=== PATIENT | female | born 1950 | race Caucasian/White ===

== ENCOUNTER 2017-03-02 17:55 | Emergency (ER) | payer OTHER, MEDICAID ==
[2017-03-02 18:10] VITALS: RESP 20
[2017-03-02] MEDS ORDERED: ENOXAPARIN 120 MG/0.8 ML SYR SC ONE (18:32)
--- NOTE | 2017-03-02 18:35 | EDPHY ---
H & P Time Seen by Provider: 03/02/17 18:16 HPI/ROS: CHIEF COMPLAINT: Right arm pain, DVT HISTORY OF PRESENT ILLNESS: This 66-year-old man has a history of bone cancer breast cancer and is followed by Dr. Martinez. 3 years ago after surgery she had a pulmonary embolism as anticoagulated but is not currently on any blood thinners. Over the last 3 days she has had pain in her right shoulder radiating to her bicep not worse with movement not associated with chest pain or shortness of breath. She had ultrasound today which showed a DVT and she was sent here for further evaluation. It is associated with a little bit of swelling of her right hand but no weakness or numbness in the right hand. REVIEW OF SYSTEMS: Eye: no change in vision ENT: no sore throat Cardiac: no chest pain or syncope Pulmonary: no cough or SOB Abdomen: no vomiting, diarrhea, abdominal pain Musculoskeletal: Arm and shoulder symptoms as noted above Skin: no rash Neuro: no headache Constitutional: no fever : no urinary symptoms A comprehensive 10 point review of systems is otherwise negative aside from elements mentioned in the history of present illness. PAST MEDICAL HISTORY: Bone and breast cancer, fibromyalgia, pulmonary embolism Social history: Nonsmoker General Appearance: Alert and conversant, cooperative. Eyes: No scleral icterus. ENT, Mouth: Normal mucous membranes. Respiratory: Normal respiratory effort, breath sounds equal, lungs are clear to auscultation. Speaking in full sentences. Cardiovascular: Regular rate and rhythm. Gastrointestinal: Abdomen is soft and non tender. Neurological: Alert and oriented x3. Normally conversant. Face symmetric, normal movement and sensation in all extremities. Skin: Warm and dry, no rashes. Specifically no zoster or discoloration of the skin over the right shoulder. Musculoskeletal: Normal range of motion of the right shoulder elbow and forearm. Normal sensory and radial pulse in the right hand. Psychiatric: Not agitated. Emergency Department course/MDM: Discussed with Dr. Jeaentte Tompkins for Dr. Martinez prior to arrival. Her request is that we treat the patient with Lovenox for the next [address] Martinez will contact her tomorrow about specifics of continued anticoagulation. Warfarin versus NOACs discussed with the patient, and her oncology practice's desire to have that discussion not tonight but tomorrow. She feels comfortable giving herself 2nd Lovenox injection in the morning. Currently she does not have signs or symptoms of pulmonary embolism or hemodynamic instability. Smoking Status: Former smoker Constitutional: Initial Vital Signs Temperature (C) 37 C 03/02/17 18:07 Heart Rate 100 03/02/17 18:07 Respiratory Rate 20 03/02/17 18:07 Blood Pressure 148/91 H 03/02/17 18:07 O2 Sat (%) 95 03/02/17 18:07 O2 Delivery Mode Room Air Allergies/Adverse Reactions: Wheat Containing *RETIRED-02/15/12 [Wheat Containing Prod] Allergy ( Intermediate, Verified 03/02/17 18:04) Other-Enter Comments gluten Allergy (Verified 03/02/17 18:04) Home Medications: Medication Instructions Recorded ARIPiprazole [Abilify 10 mg (*)] 10 mg PO DAILY 06/15/14 Methylphenidate HCl [RITALIN LA] 30 mg PO ,14 PRN 06/15/14 Naltrexone 4.5mg Cap (Compounded) 1 cap PO HS 06/15/14 SUMAtriptan [Imitrex 50 MG (*)] 100 mg PO Q2 PRN 06/15/14 Venlafaxine HCl [Venlafaxine HCl 450 mg PO DAILY 06/15/14 ER] Zolpidem Tartrate [Ambien 10 mg] 10 mg PO HS 06/15/14 Herbals/Supplements -Info Only 1 ea PO DAILY 10/10/14 Hydrocodone/APAP 5/325 [[place] 1 - 2 tab PO Q4 PRN #30 tab 10/17/14 5/325 (*)] Cogentin 03/02/17 Enoxaparin [Lovenox 120 MG (*)] 120 mg SQ BID #1 ml 03/02/17 GLIPIZIDE 03/02/17 Ibrance 03/02/17 Letrozole 03/02/17 Losartan Potassium 03/02/17 Tradjenta 03/02/17 Medical Decision Making - Diagnostics Imaging Results: Imaging Impressions Extremity Venous Study 03/02/17 16:00 Impression: 1. Thrombus identified involving the basilic vein right upper arm as well as the right cephalic vein. 2. Superficial thrombus involving varicosity over the right shoulder corresponding with palpable abnormality. Findings discussed with Dr. Jeanette Tompkins at 17:39 hour, 03/02/2017. Differential Diagnosis: Differential for right arm and shoulder pain considered including but not limited to compartment syndrome, fracture, DVT, arterial occlusion, septic joint. Departure - Departure Disposition: Home, Routine, Self-Care Clinical Impression: Deep vein thrombosis (DVT) of right upper extremity Qualifiers: Affected thrombotic vein of extremity: unspecified vein of extremity Chronicity : acute Qualified Code(s): I82.621 - Acute embolism and thrombosis of deep veins of right upper extremity Condition: Good Instructions: Enoxaparin (By injection), Deep Venous Thrombosis (ED) Additional Instructions: 2nd dose of Lovenox to be injected at home 12 hours after the 1st dose, tomorrow morning. Return if you get chest pain or trouble breathing. Please contact your oncologist Dr. Martinez tomorrow morning at 8:30 a.m. for discussion and prescription for ongoing anticoagulation for blood clot. The Lovenox should anticoagulate you through tomorrow evening. Referrals: Adrian Grady MD [Primary Care Provider] - As per Instructions Destini Martinez MD [Medical Doctor] - As per Instructions Prescriptions: Enoxaparin [Lovenox 120 MG (*)] 120 mg SQ BID #1 ml
[2017-03-02 19:46] VITALS: BP 121/80; PULSE 83; TEMP 98.4; O2SAT 92
[2017-03-03] MEDS ORDERED: ENOXAPARIN 120 MG/0.8 ML SYR SC SCH
== END 2017-03-02 20:17 | disposition home or self-care (01) ==
DX: I82.621 Acute embolism and thrombosis of deep veins of right upper extremity (principal); Z85.3 Personal history of malignant neoplasm of breast; Z85.830 Personal history of malignant neoplasm of bone; Z87.891 Personal history of nicotine dependence
CPT/HCPCS: 93971; 96372; 99285; J1650

== ENCOUNTER 2018-06-12 21:01 | Inpatient (IN) | payer OTHER, MEDICAID ==
[2018-06-12] MEDS ORDERED: ACETAMINOPHEN 500 MG TAB PO ONE (21:15)
--- NOTE | 2018-06-12 21:15 | EDPHY ---
H & P Time Seen by Provider: 06/12/18 21:04 HPI/ROS: HPI Malaise, confusion. 68-year-old female by ambulance from her home. Her son reported to EMS that she has been more confused since this morning. The patient She also reports that she has felt generally weak and low on energy and because of this is had a hard time ambulating. The son was initially concerned about a stroke. But EMS reports that she has no signs of a stroke. They report that she has being communicating in full sentences and answering questions appropriately and does not appear confused. She was able to ambulate according to EMS with minimal assistance. BGL per EMS was 78. On re-evaluation, the patient explained to me that she has had worsening of vaginal irritation and pain as well as irritation and pain involving her inguinal pannus folds ongoing for weeks now. My sense is that she did not communicate this on my 1st evaluation with EMS present secondary to embarrassment. She also reports that she has been admitted to the hospital in the past but years ago for a similar condition. ROS: Constitutional: No fever, no chills. As above. Eyes: No discharge. No changes in vision. ENT: No sore throat. No nasal congestion or rhinorrhea. Respiratory: No cough. No shortness of breath. Cardiac: No chest pain, no palpitations. Gastrointestinal: No abdominal pain, no vomiting, no diarrhea. Genitourinary: No hematuria. No dysuria or increased frequency with urination. As above. Musculoskeletal: No back pain. No neck pain. No myalgias or arthralgias. Skin: As above. Neurological: No headache. No focal weakness or altered sensation. Past medical history: Chronic pain, breast cancer, as above. Social history: Nonsmoker. Here by herself but lives with her son. Denies alcohol. Physical Exam: General Appearance: Alert, no distress. Morbid obesity. This patient is responding to questions appropriately and in full sentences. This patient appears well-hydrated and well-nourished. Eyes: Pupils equal and round no pallor or injection. No lid edema, erythema or injection. Respiratory: There are no retractions, lungs are clear to auscultation anteriorly with good air movement bilaterally. Cardiovascular: Regular rate and rhythm. No murmur. Gastrointestinal: Obese habitus. Abdomen is soft and nontender, no masses, bowel sounds normal. No focal tenderness at McBurney's point. No Cheung sign. Neurological: Motor sensory function is grossly intact. Cranial nerves are normal. Gait is normal. Skin: She has an advanced intertrigo involving the fat folds over her bilateral inguinal areas. This extends down into the labia of her vagina and her perineum. This is also noted to extensively involve the gluteal fold. I do not appreciate any abscess. There is no crepitus. She does not appear to be markedly tender or have pain out of proportion to exam. She does have some bleeding from what appears to be broken and friable mucosa of her labia minora. Musculoskeletal: Neck is supple and nontender. Extremities are symmetrical. All joints range without pain or impingement. Psychiatric: No agitation. No depression. Database: EKG: EKG time is 9:23 p.m.; EKG shows a narrow complex sinus tachycardia with a ventricular rate of 113. The HI, QRS, QT intervals are within normal limits. There are no ST-T wave changes indicative of ischemic or injury pattern. No evidence of right heart strain. Interpreted by me. Imaging: Chest x-ray PA and lateral; the cardiac mediastinal silhouette is unremarkable. No evidence of infiltrate or pneumothorax. Peribronchial thickening suggestive of mild bronchitis. Otherwise, no acute cardiopulmonary disease process noted. Interpreted by me. Procedures: Emergency department course: Triage vital signs reviewed. She is febrile and tachycardic. She is moderately hypertensive. Room air pulse oximetry is in the mid 90s. Sepsis protocol initiated. EKG obtained and reviewed by myself. IV placed, she was placed on a cardiac exercise specialist. She was given 1 g of Tylenol orally for fever. Her presentation is consistent with an advanced intertrigo involving the pannus folds of her inguinal areas as well as her perennial and vaginal tissues. I feel there is also a likely superimposed bacterial cellulitis. Necrotizing fasciitis is unlikely. Blood in urine cultures will be obtained. She will be started on IV Ancef in the emergency department and miconazole cream will be applied to the affected areas. The patient did meet criteria for severe sepsis and this protocol was initiated. Please see times order. 11:00 p.m., spoke with on-call hospitalist Dr. Clinton. Case discussed in detail. We will obtain a CT abdomen and pelvis contrast enhanced to evaluate for gas in the soft tissues as well as possible abscess. I examined the patient with Dr. Clinton. Patient will be admitted to the step-down unit initially. Patient's remaining emergency department course under my care has been uneventful. She was admitted in stable condition. Dr. Clinton follow up on results of CT abdomen and pelvis. AC reactive protein has also been ordered and will be followed up on by Dr. Clinton. Differential Diagnosis: The differential diagnosis on this patient includes but is not limited to intertrigo, superimposed cellulitis, urinary tract infection, pneumonia, sepsis. Acute coronary syndrome, CVA, medication reaction unlikely. This represents a partial list of diagnoses considered. These considerations are based on history, physical exam, past history, reassessment and diagnostic testing. Smoking Status: Former smoker Constitutional: Initial Vital Signs Temperature (C) 38.9 C H 06/12/18 21:08 Heart Rate 117 H 06/12/18 21:08 Respiratory Rate 18 06/12/18 21:08 Blood Pressure 162/79 H 06/12/18 21:08 O2 Sat (%) 96 06/12/18 21:08 O2 Delivery Mode Nasal Cannula O2 (L/minute) 2 Allergies/Adverse Reactions: Wheat Containing *RETIRED-02/15/12 [Wheat Containing Prod] Allergy ( Intermediate, Verified 03/02/17 18:04) Other-Enter Comments gluten Allergy (Verified 03/02/17 18:04) Home Medications: Medication Instructions Recorded ARIPiprazole [Abilify 10 mg (*)] 10 mg PO DAILY 06/15/14 SUMAtriptan [Imitrex 50 MG (*)] 100 mg PO Q2 PRN 06/15/14 Venlafaxine HCl [Venlafaxine HCl 450 mg PO DAILY 06/15/14 ER] Benztropine Mesylate [Cogentin 1 - 2 mg PO HS 06/13/18 (RX)] Gabapentin [Neurontin 300 MG (*)] 300 - 600 mg PO DAILY 06/13/18 HYDROcodone/APAP 10/325 [Purmela 2 tab PO Q4H 06/13/18 10/325 (*)] Linagliptin [Tradjenta] 5 mg PO DAILY 06/13/18 Losartan Potassium [Cozaar 50 mg 50 mg PO DAILY 06/13/18 (*)] Methylphenidate HCl [Ritalin 20mg 40 mg PO BID 06/13/18 (*)] glipiZIDE [Glipizide] 10 mg PO DAILY 06/13/18 Medical Decision Making - Data Points Laboratory Results: Laboratory Results 06/12/18 21:00 06/12/18 21:00 Medications Given: Hydrocodone Bitart/Acetaminophen (Purmela 5/325) 1 - 2 tab PO Q4HRS PRN PRN Reason: Pain, Moderate Able to Take PO Stop: 06/23/18 01:40 Last Admin: 06/13/18 14:14 Dose: 2 tab Aripiprazole (Abilify) 10 mg PO DAILY [facility] Stop: 12/10/18 12:59 Last Admin: 06/13/18 14:31 Dose: 10 mg Gabapentin (Neurontin) 300 - 600 mg PO DAILY [facility] Stop: 12/10/18 12:59 Last Admin: 06/13/18 14:37 Dose: 600 mg Cefazolin Sodium/Dextrose (Ancef) 100 mls @ 200 mls/hr IV Q8HRS LISA PRN Reason: Protocol Stop: 07/13/18 05:59 Last Admin: 06/13/18 14:15 Dose: 100 mls Insulin Human Lispro (Humalog Lispro) 0 unit SC TIDMEAL LISA PRN Reason: Protocol Stop: 12/10/18 07:59 Last Admin: 06/13/18 12:58 Dose: Not Given Miconazole Nitrate (Micatin 2%) 1 subhash TP BID [facility] Stop: 07/13/18 08:59 Last Admin: 06/13/18 09:46 Dose: 1 subhash Rivaroxaban (Xarelto) 20 mg PO DAILY [facility] Stop: 12/10/18 13:44 Last Admin: 06/13/18 14:34 Dose: 20 mg Venlafaxine HCl (Effexor Xr) 450 mg PO DAILY [facility] Stop: 12/10/18 12:59 Last Admin: 06/13/18 14:31 Dose: 450 mg Discontinued Medications Acetaminophen (Tylenol) 1,000 mg PO EDNOW ONE Stop: 06/12/18 21:16 Last Admin: 06/12/18 21:18 Dose: 1,000 mg Sodium Chloride (Ns) 1,000 mls @ 0 mls/hr IV EDNOW ONE; Wide Open PRN Reason: Protocol Stop: 06/12/18 21:30 Last Admin: 06/12/18 21:48 Dose: 1,000 mls Lactated Ringer's (Lr) 2,600 mls @ 5,200 mls/hr 30 ml/kg infuse over 30 min ( 2600 ml) IV EDNOW ONE PRN Reason: Protocol Stop: 06/12/18 22:31 Last Admin: 06/12/18 22:35 Dose: 2,600 mls Cefazolin Sodium/Dextrose (Ancef) 100 mls @ 200 mls/hr IV EDNOW ONE PRN Reason: Protocol Stop: 06/12/18 22:48 Last Admin: 06/12/18 22:59 Dose: 100 mls Sodium Chloride (Ns) 1,000 mls @ 0 mls/hr IV ONCE ONE PRN Reason: Wide Open Stop: 06/13/18 01:22 Last Admin: 06/13/18 02:25 Dose: 1,000 mls Miconazole Nitrate (Micatin 2%) 1 subhash TP EDNOW ONE Stop: 06/12/18 22:21 Last Admin: 06/12/18 23:06 Dose: 1 subhash Departure - Departure Disposition: [facility] Acute Clinical Impression: Intertrigo labialis, Cellulitis of groin, Sepsis, Leukopenia
[2018-06-12 21:20] LABS: PLATELET COUNT 93 10^3/uL (150-400)
[2018-06-12] MEDS ORDERED: NS 1,000 ML IV ONE (21:29)
[2018-06-12 21:31] LABS: INR 1.98 (0.83-1.16); PROTIME(PATIENT) 22.6 SEC (12.0-15.0)
[2018-06-12] MEDS ORDERED: LACTATED RINGERS IV ONE (22:02)
[2018-06-12] MEDS ORDERED: ceFAZolin 2 GM/DEXTROSE 100 ML IV ONE (22:19)
[2018-06-12] MEDS ORDERED: MICONAZOLE NITRATE 2% 14 GM CREAM TP ONE (22:20)
[2018-06-12] MEDS ORDERED: IOPAMIDOL (ISOVUE-300) 100 ML BTL ONE (22:30)
[2018-06-12] MEDS ORDERED: ACETAMINOPHEN 325 MG TAB PO PRN (22:33)
[2018-06-12] MEDS ORDERED: ONDANSETRON DISINTEGRATING 4 MG TAB PO PRN (22:33)
[2018-06-12] MEDS ORDERED: ONDANSETRON 4 MG/2 ML VIAL IVP PRN (22:33)
[2018-06-12] MEDS ORDERED: D50W 25 GM/50 ML VIAL IVP PRN (22:36)
--- NOTE | 2018-06-12 23:29 | PDGENHP ---
History and Physical - Chief Complaint Confusion - History of Present Illness 68 yo F w/ hx of PE, breast CA, HTN, and DM presents with confusion via EMS. Her son noted she was confused so called EMS to bring her to the hospital. Upon arrival to the ED the patient revealed that her main complaint was related to inguinal and vaginal irritation and pain. In the ED she has been febrile and tachycardic with a low WBC. Her inguinal and vaginal area are markedly erythematous. At the time of my evaluation she is alert and oriented with minimal complaints aside from pain in her inguinal region. Of note, she was seen at [facility] in 2014 for significant pelvic infection requiring surgical debridement and diverting colostomy. Review of microbiology data reveals that infection was due to heath-sensitive E. Coli. Case discussed with ED physician Dr. Ramirez; records reviewed and summarized above. History Information - Allergies/Home Medication List Allergies/Adverse Reactions: Wheat Containing *RETIRED-02/15/12 [Wheat Containing Prod] Allergy ( Intermediate, Verified 03/02/17 18:04) Other-Enter Comments gluten Allergy (Verified 03/02/17 18:04) Home Medications: ARIPiprazole [Abilify 10 mg (*)] 10 mg PO DAILY 06/15/14 [Last Taken 10/11/14 12 :00] Methylphenidate HCl [RITALIN LA] 30 mg PO ,14 PRN 06/15/14 [Last Taken 15:00] Naltrexone 4.5mg Cap (Compounded) 1 cap PO HS 06/15/14 [Last Taken 10/10/14 21: 00] SUMAtriptan [Imitrex 50 MG (*)] 100 mg PO Q2 PRN 06/15/14 [Last Taken 09/12/14] Venlafaxine HCl [Venlafaxine HCl ER] 450 mg PO DAILY 06/15/14 [Last Taken 05:30] Zolpidem Tartrate [Ambien 10 mg] 10 mg PO HS 06/15/14 [Last Taken 10/10/14 21:00 ] Herbals/Supplements -Info Only 1 ea PO DAILY 10/10/14 [Last Taken Unknown] Cogentin 03/02/17 [Last Taken Unknown] GLIPIZIDE 03/02/17 [Last Taken Unknown] Ibrance 03/02/17 [Last Taken Unknown] Letrozole 03/02/17 [Last Taken Unknown] Losartan Potassium 03/02/17 [Last Taken Unknown] Tradjenta 03/02/17 [Last Taken Unknown] I have personally reviewed and updated: family history, medical history - Past Medical History cancer, diabetes type 2, hypertension, pulmonary embolism - Surgical History Additional surgical history: Colostomy with subsequent takedown - Family History Positive for: cancer - Social History Smoking Status: Former smoker Review of Systems Review of Systems: ROS: 10pt was reviewed & negative except for what was stated in HPI & below Physical Exam Physical Exam: Temp Pulse Resp BP Pulse Ox 38.5 C H 110 H 18 122/73 H 92 06/12/18 23:23 06/12/18 23:23 06/12/18 23:23 06/12/18 23:23 06/12/18 23:23 O2 (L/minute) 2 Constitutional: obese, uncomfortable Eyes: PERRL, EOMI Ears, Nose, Mouth, Throat: moist mucous membranes, no oral mucosal ulcers Cardiovascular: no murmur, rub, or gallop, tachycardia Respiratory: no respiratory distress, clear to auscultation Gastrointestinal: normoactive bowel sounds, soft, non-tender abdomen Skin: erythema, other (Irritation and erythmea in inguinal folds, abdominal folds, and vagina) Musculoskeletal: full muscle strength, no muscle tenderness Neurologic: AAOx3, CN II-XII Intact Psychiatric: interacting appropriately, not anxious Lab Data & Imaging Review 06/12/18 21:00 06/12/18 21:00 WBC 3.26 10^3/uL (3.80-9.50) L 06/12/18 21:00 RBC 4.46 10^6/uL (4.18-5.33) 06/12/18 21:00 Hgb 14.0 g/dL (12.6-16.3) 06/12/18 21:00 Hct 42.5 % (38.0-47.0) 06/12/18 21:00 MCV 95.3 fL (81.5-99.8) 06/12/18 21:00 MCH 31.4 pg (27.9-34.1) 06/12/18 21:00 MCHC 32.9 g/dL (32.4-36.7) 06/12/18 21:00 RDW 13.2 % (11.5-15.2) 06/12/18 21:00 Plt Count 93 10^3/uL (150-400) L 06/12/18 21:00 MPV 9.7 fL (8.7-11.7) 06/12/18 21:00 Neut % (Auto) 74.5 % (39.3-74.2) H 06/12/18 21:00 Lymph % (Auto) 16.9 % (15.0-45.0) 06/12/18 21:00 Brule % (Auto) 4.9 % (4.5-13.0) 06/12/18 21:00 Eos % (Auto) 2.5 % (0.6-7.6) 06/12/18 21:00 Baso % (Auto) 0.9 % (0.3-1.7) 06/12/18 21:00 Nucleat RBC Rel Count 0.0 % (0.0-0.2) 06/12/18 21:00 Absolute Neuts (auto) 2.43 10^3/uL (1.70-6.50) 06/12/18 21:00 Absolute Lymphs (auto) 0.55 10^3/uL (1.00-3.00) L 06/12/18 21:00 Absolute Monos (auto) 0.16 10^3/uL (0.30-0.80) L 06/12/18 21:00 Absolute Eos (auto) 0.08 10^3/uL (0.03-0.40) 06/12/18 21:00 Absolute Basos (auto) 0.03 10^3/uL (0.02-0.10) 06/12/18 21:00 Absolute Nucleated RBC 0.00 10^3/uL (0-0.01) 06/12/18 21:00 Immature Gran % 0.3 % (0.0-1.1) 06/12/18 21:00 Immature Gran # 0.01 10^3/uL (0.00-0.10) 06/12/18 21:00 RBC/WBC/PLT Morphology TNP 06/12/18 21:00 Platelet Estimate TNP 06/12/18 21:00 ESR Cancelled 06/12/18 21:00 PT 22.6 SEC (12.0-15.0) H 06/12/18 21:00 INR 1.98 (0.83-1.16) H 06/12/18 21:00 APTT 40.4 SEC (23.0-38.0) H 06/12/18 21:00 VBG Lactic Acid 2.1 mmol/L (0.7-2.1) 06/12/18 21:45 Sodium 135 mEq/L (135-145) 06/12/18 21:00 Potassium 4.0 mEq/L (3.5-5.2) 06/12/18 21:00 Chloride 102 mEq/L (97-110) 06/12/18 21:00 Carbon Dioxide 27 mEq/l (22-31) 06/12/18 21:00 Anion Gap 6 mEq/L (6-14) 06/12/18 21:00 BUN 13 mg/dL (7-23) 06/12/18 21:00 Creatinine 0.8 mg/dL (0.6-1.0) 06/12/18 21:00 Estimated GFR > 60 06/12/18 21:00 Glucose 163 mg/dL (70-100) H 06/12/18 21:00 Calcium 9.1 mg/dL (8.5-10.4) 06/12/18 21:00 Total Bilirubin 0.6 mg/dL (0.1-1.4) 06/12/18 21:00 C-Reactive Protein 31.6 mg/L (<10.0) H 06/12/18 21:00 Urine Color YELLOW 06/12/18 21:45 Urine Appearance CLEAR 06/12/18 21:45 Urine pH 5.0 (5.0-7.5) 06/12/18 21:45 Ur Specific [place] 1.017 (1.002-1.030) 06/12/18 21:45 Urine Protein NEGATIVE (NEGATIVE) 06/12/18 21:45 Urine Ketones NEGATIVE (NEGATIVE) 06/12/18 21:45 Urine Blood 2+ (NEGATIVE) H 06/12/18 21:45 Urine Nitrate NEGATIVE (NEGATIVE) 06/12/18 21:45 Urine Bilirubin NEGATIVE (NEGATIVE) 06/12/18 21:45 Urine Urobilinogen NEGATIVE EU (0.2-1.0) 06/12/18 21:45 Ur Leukocyte Esterase NEGATIVE (NEGATIVE) 06/12/18 21:45 Urine RBC 25-50 /hpf (0-3) H 06/12/18 21:45 Urine WBC 1-3 /hpf (0-3) 06/12/18 21:45 Ur Epithelial Cells NONE SEEN /lpf (NONE-1+) 06/12/18 21:45 Urine Mucus TRACE /lpf (NONE-1+) 06/12/18 21:45 Urine Glucose 1+ (NEGATIVE) H 06/12/18 21:45 Imaging Review: Imaging Impressions Chest X-Ray 06/12/18 21:10 Impression: Peribronchial thickening with mild hypoventilatory features, and no convincing focal infiltrate. If there is progression of the patient's symptoms, consider PA and lateral upright views in the department. Assessment & Plan Assessment: 68 yo F w/ hx of breast CA, DM, HTN, and PE presents with intertrigo and likely bacterial superinfection. Plan: 1. Sepsis - 2/2 intertrigo and likely bacterial superinfection of the inguinal area, abdominal folds, and vagina. Sepsis on admission per fever, tachycardia, and leukopenia (3/4 SIRS criteria). She is hemodynamically stable at the moment. - Cefazolin IV and miconazole topical ordered - Blood cultures pending - S/p 30 ml/kg IVF bolus 2. Leukopenia, thrombocytopenia - Likely related to infection as current values are lower than usual, but there may be an other underlying etiology as well. - Monitor CBC - Acute management as above 3. DM - Patient unsure of her home regimen, she knows she takes Tradjenta but cannot recall what else. - Lispro SSI pending med reconciliation - Monitor BG ACHS, D50 IV PRN for hypoglycemia 4. Hx PE - On Xarelto as outpatient, continue pending reconciliation unless platelets drop more. 5. HTN - She tells me she is no longer taking losartan. Diet - Regular Code - Full Ppx - SCDs Dispo - Admit under inpatient status
[2018-06-13] MEDS ORDERED: NS 1,000 ML IV ONE (01:21)
[2018-06-13] MEDS: HYDROCODONE/APAP 5/325 TAB PO PRN ×5 (02:25→22:43)
[2018-06-13] MEDS: ceFAZolin 2 GM/DEXTROSE 100 ML IV SCH ×3 (05:49→22:15)
[2018-06-13 06:15] LABS: PLATELET COUNT 76 10^3/uL (150-400)
[2018-06-13] MEDS: INSULIN LISPRO 100 UNIT/ML SC SCH ×3 (08:34→19:09)
--- NOTE | 2018-06-13 09:07 | ASMTCMCOM ---
CM Note CM Note Notes: Pt is a 68 y/o female admitted for confusion, inguinal and vaginal irritation and pain. Pt is started on ivabx. It is uncertain if pt will d/c with ivabx. Needs are TBD at this time. CM to follow. Plan: TBD Date Signed: 06/13/2018 09:06 AM Electronically Signed By:CRISTI Staples
[2018-06-13] MEDS: MICONAZOLE NITRATE 2% 14 GM CREAM TP SCH ×2 (09:46→22:15)
--- NOTE | 2018-06-13 10:27 | PDMN ---
Medical Necessity Medical necessity: [facility] [place] [id number] Sepsis, A-3days:68 yo presents w/ confusion r/t sepsis likely r/t superinfection of inguinal area, abd folds and vagina. Pt is tachycardic >110, temp 38.9, leukopenic and thrombocytopenic. lactic acid 2.6. Meets [facility] [place] IP criteria for sepsis w/ hemodynamic instability and AMS. Hx PE, breast CA, HTN, DM
--- NOTE | 2018-06-13 12:48 | HOSPPROG ---
Hospitalist Progress Note Assessment/Plan: 68 yo F w/ hx of breast CA, DM, HTN, and PE presents with intertrigo and likely bacterial superinfection. First encounter, chart reviewed. * Sepsis - 2/2 intertrigo and likely bacterial superinfection of the inguinal area, abdominal folds, and vagina. - Cefazolin IV and miconazole topical ordered - Blood cultures pending - looks mainly fungal with red, beefy red skin areas in the bilateral groin folds, she has itching and burning - will ask wound care to see if they have any type of material barrier to help this heal - has an elevated c reactive *Leukopenia, thrombocytopenia - Monitor CBC *confusion -resolved *DM - Tradjenta + glipizide - Lispro SSI pending * Hx PE - On Xarelto as outpatient -did not see any OAC on her home meds, but in further talking w Lacy, will resume Xarelto -platelet count is low, will cont to monitor *bipolar disorder -Abilify *seizure disorder -gabapentin *fibromyalgia fatigue -patient takes Ritalin for this *morbid obesity *hx of polymicrobial necrotizing fascitis of Left perineum and anal area *hematuria -should get a repeat ua -she on OAC * HTN - losartan *plan: wound care to see, repeat labs in a.m., resume Xarelto and home meds Subjective: Lacy is feeling fine overall, no complaints except discomfort from her groin areas. Objective: Vital Signs Temp Pulse Resp BP Pulse Ox 36.8 C 85 16 132/78 H 94 06/13/18 11:39 06/13/18 11:39 06/13/18 11:39 06/13/18 11:39 06/13/18 11:39 Microbiology 06/13/18 02:00 Respiratory Panel (PCR) - Final Nasal, Sinus - Swab No Organism Detected By Pcr Laboratory Results 06/13/18 04:45 06/13/18 04:45 06/12/18 06/13/18 06/14/18 05:59 05:59 05:59 Intake Total 2950 400 Output Total 350 Balance 2950 50 PT 22.6 SEC (12.0-15.0) H 06/12/18 21:00 INR 1.98 (0.83-1.16) H 06/12/18 21:00 - Physical Exam Constitutional: chronically ill appearing, obese, uncomfortable Eyes: PERRL Ears, Nose, Mouth, Throat: hearing normal Cardiovascular: regular rate and rhythym Respiratory: no respiratory distress, reduced air movement Gastrointestinal: normoactive bowel sounds Skin: other (bilateral groin area moist, beefy red, tender=extends into the perineal area) Musculoskeletal: generalized weakness Neurologic: AAOx3 Psychiatric: interacting appropriately ICD10 Worksheet Patient Problems: Problems Problem Status Onset Abscess Acute Necrotizing fasciitis Acute Intertrigo labialis Acute Cellulitis of groin Acute
[2018-06-13] MEDS: ARIPiprazole 10 MG TAB PO SCH (14:31)
[2018-06-13] MEDS: VENLAFAXINE XR 150 MG CAP PO SCH (14:31)
[2018-06-13] MEDS: RIVAROXABAN 20 MG TAB PO SCH (14:34)
[2018-06-13] MEDS: GABAPENTIN 300 MG CAP PO SCH (14:37)
[2018-06-13] MEDS ORDERED: BENZTROPINE MESYLATE 1 MG TAB PO SCH (21:00)
--- NOTE | 2018-06-13 22:14 | CPEKG ---
Test Reason : OPEN Blood Pressure : / mmHG Vent. Rate : 113 BPM Atrial Rate : 114 BPM P-R Int : 153 ms QRS Dur : 091 ms QT Int : 310 ms P-R-T Axes : 057 049 060 degrees QTc Int : 425 ms Sinus tachycardia Confirmed by Zain Ramirez ([id number]) on 06/13/2018 10:13:45 PM Referred By: Confirmed By:Zain Ramirez
[2018-06-14] MEDS: ceFAZolin 2 GM/DEXTROSE 100 ML IV SCH (05:46)
[2018-06-14 05:51] LABS: PLATELET COUNT 78 10^3/uL (150-400)
[2018-06-14] MEDS: INSULIN LISPRO 100 UNIT/ML SC SCH ×2 (08:52→13:01)
[2018-06-14] MEDS: GABAPENTIN 300 MG CAP PO SCH (08:53)
[2018-06-14] MEDS: VENLAFAXINE XR 150 MG CAP PO SCH (08:53)
[2018-06-14] MEDS: HYDROCODONE/APAP 5/325 TAB PO PRN ×2 (08:54→13:12)
[2018-06-14] MEDS: ARIPiprazole 10 MG TAB PO SCH (08:55)
[2018-06-14] MEDS: RIVAROXABAN 20 MG TAB PO SCH (08:55)
[2018-06-14] MEDS: MICONAZOLE NITRATE 2% 14 GM CREAM TP SCH (08:57)
[2018-06-14] MEDS ORDERED: LOSARTAN POTASSIUM 50 MG TAB PO SCH (09:00)
[2018-06-14] MEDS ORDERED: glipiZIDE 10 MG TAB PO SCH (09:00)
--- NOTE | 2018-06-14 12:30 | ASMTLACE ---
LACE Length of stay for Answers: 2 days current admission Acuity / Level of Answers: Yes Care: Did the patient have an inpatient admission? Comorbidities - select Answers: Any tumor (including all that apply lymphoma or leukemia) Diabetes (uncontrolled or controlled) Opioid dependence / Chronic pain Other Notes: Hx of PE; HTN # of Emergency department Answers: 1-2 visits in the last 6 months Social determinants Answers: Mental health diagnosis (anxiety, depression, pers onality disorders, etc.) Score: 17 Date Signed: 06/14/2018 12:30 PM Electronically Signed By:CRISTI Staples
--- NOTE | 2018-06-14 12:33 | ASMTDCNOTE ---
Case Management Discharge Discharge Order Complete? Answers: Yes Patient to Obtain Answers: Independently Medications Transportation Arranged Answers: Family/Friends EMTALA Complete Answers: No Case Management Transport Answers: No Form Complete Faxed Final Orders Answers: Yes Agency/Facility Transfer Answers: Yes Report Printed & Faxed to Receiving Agency Family Notified Answers: No Discharge Comments Notes: CM spoke to Windy Mtz NP regarding d/c POC. Windy is recommending a HC RN follow this case. CM met w/ pt. Pt is agreeable to HC RN services through [facility]. Referral to [facility]. [facility] is able to accept. LUIS Santizo will call to give report. CM updated pts address, phone number and PCP info into demographics of [facility]. CM available for changes. Plan: [facility]; RN Date Signed: 06/14/2018 12:32 PM Electronically Signed By:CRISTI Staples
--- NOTE | 2018-06-14 12:36 | ASDISCHSUM ---
Discharge Information Plan Status:Home with Home Health Medically Cleared to Leave:06/13/2018 Discharge Date:06/13/2018 CM D/C Disposition: ADT D/C Disposition:Home Health Service Projected Discharge Date:06/14/2018 11:00 AM Transportation at D/C: Discharge Delay Reason: Follow-Up Date:06/14/2018 11:00 AM Discharge Slot: Final Diagnosis: Placement Information Referral Type:*Home Health Care Services Referral ID:[id number] Provider Name:[facility] Care Address 1:[address] Address 2: City:[place] Selection Factors: State:[place] Patient Contact Information Contact Name:SILVIA Relationship:Son Address:[address] Work Phone: [facility]:[place] Alternate Phone: State/Zip Code:[place] [address] Email: Financial Information Financial Class:Medicare Primary Plan Desc:MEDICARE INPATIENT Primary Plan Number:[id number] Secondary Plan Desc:[place] Secondary Plan Number:[id number] Assessment Information LACE LACE Length of stay for Answers: 2 days current admission Acuity / Level of Answers: Yes Care: Did the patient have an inpatient admission? Comorbidities - select Answers: Any tumor (including all that apply lymphoma or leukemia) Diabetes (uncontrolled or controlled) Opioid dependence / Chronic pain Other Notes: Hx of PE; HTN # of Emergency department Answers: 1-2 visits in the last 6 months Social determinants Answers: Mental health diagnosis (anxiety, depression, pers onality disorders, etc.) Score: 17 Date Signed: 06/14/2018 12:30 PM Electronically Signed By:CRISTI Staples [facility] CM Progress Note CM Note CM Note Notes: Pt is a 68 y/o female admitted for confusion, inguinal and vaginal irritation and pain. Pt is started on ivabx. It is uncertain if pt will d/c with ivabx. Needs are TBD at this time. CM to follow. Plan: TBD Date Signed: 06/13/2018 09:06 AM Electronically Signed By:CRISTI Staples Case Management Discharge Plan Note Case Management Discharge Discharge Order Complete? Answers: Yes Patient to Obtain Answers: Independently Medications Transportation Arranged Answers: Family/Friends EMTALA Complete Answers: No Case Management Transport Answers: No Form Complete Faxed Final Orders Answers: Yes Agency/Facility Transfer Answers: Yes Report Printed & Faxed to Receiving Agency Family Notified Answers: No Discharge Comments Notes: LINN spoke to Windy Mtz NP regarding d/c POC. Windy is recommending a HC RN follow this case. CM met w/ pt. Pt is agreeable to HC RN services through [facility]. Referral to [facility]. [facility] is able to accept. Darlyn RN will call to give report. CM updated pts address, phone number and PCP info into demographics of [facility]. CM available for changes. Plan: [facility]; RN Date Signed: 06/14/2018 12:32 PM Electronically Signed By:CRISTI Staples Intervention Information
--- NOTE | 2018-06-14 12:41 | PDIAF ---
- Diagnosis Diagnosis: wound/cellulitis Code Status: Full Code - Medication Management Discharge Medications: electronically signed and located in the Home Medication List. PICC Care - Routine: N/A - Orders Services needed: Home Care, Registered Nurse Home Care Face to Face: I certify that this patient was under my care and that I had the required [id number] encounter meeting the encounter requirements on the discharge day. My findings support the fact that the patient is homebound as defined in Home Care Face to Face Continued: CMS Chapter 7 Medicare Benefits Manual 30.1.1 , The condition of the patient is such that there exists a normal inability to leave home and consequently, leaving home would require a considerable and taxing effort. Isolation Type: None Diet Recommendation: ADA 1800 consistent carb - Follow Up Care Current Providers and Referrals: Patient,NotPresent [Unknown] - As per Instructions
[2018-06-14 12:56] VITALS: BP 148/86
--- NOTE | 2018-06-14 15:30 | GDS ---
DISCHARGE DIAGNOSES: 1. Sepsis. 2. Leukopenia. 3. Thrombocytopenia. 4. Confusion. 5. Diabetes. 6. Bipolar disorder. 7. History of pulmonary embolism. 8. History of seizure disorder. 9. Groin cellulitis. 10. Fibromyalgia. 11. Morbid obesity. 12. Hypertension. STUDIES AND PROCEDURES DONE: CT of the abdomen. PHYSICAL EXAM: GENERAL: The patient is alert. VITAL SIGNS: Afebrile 37.2, pulse 92, respiratory r ate 19, blood pressure is 148/86. She is saturating 93% on room air. I have seen evaluated the zahira ent on the day of discharge. HOSPITAL COURSE: The patient is a 68-year-old female who presented to the emergency room with compla ints of wound. She was evaluated and diagnosed with: 1. Sepsis. This is in the setting of bacterial superinfection of the abdominal folds. She was poonam carine during this hospitalization with cefazolin as well as miconazole. Her blood cultures have been n egative to date. Her symptoms are improving. Her sepsis has resolved. 2. Leukopenia with thrombocytopenia. This is multifactorial. 3. Confusion. This has resolved. 4. A 6 mm nodule in the lung. I have expressed this to the patient. She needs to follow up with a CT in 6 months. She says she follows with Dr. Martinez in the outpatient setting. 5. Diabetes mellitus. Her home medications have been re-initiated. 6. History of PE. She is on Xarelto. No signs of PE. 7. Bipolar disorder, stable. Continue home medications. 8. Seizure disorder, stable. Continue home medications. 9. Fibromyalgia. 10. Morbid obesity. 11. Hypertension. This is stable on medications. DISPOSITION: She will be discharged home with a home RN to continue to evaluate her wound. The [facility] ent does have cellulitis with likely significant fungal component, responding well to treatment. DISCHARGE MEDICATIONS: I have provided a prescription for miconazole, Xarelto, doxycycline. I have not discontinued the patient's previously prescribed home medications. I spent greater than 35 minutes in the care, coordination, and management of patient's disposition. /[id number]/MODL
== END 2018-06-14 14:11 | disposition home health service (06) | DRG 872 ==
LOC: EDUNIT# → F3E 06-13 00:55
PROVIDERS: ADMIT Student in an Organized Health Care Education/Training Program; ATTEND Internal Medicine
DX: A41.9 Sepsis, unspecified organism (principal); L03.314 Cellulitis of groin; L03.315 Cellulitis of perineum; L30.4 Erythema intertrigo; I10 Essential (primary) hypertension; E11.9 Type 2 diabetes mellitus without complications; D69.6 Thrombocytopenia, unspecified; D72.819 Decreased white blood cell count, unspecified; F31.9 Bipolar disorder, unspecified; G40.909 Epilepsy, unspecified, not intractable, without status epilepticus; M79.7 Fibromyalgia; E66.01 Morbid (severe) obesity due to excess calories; R41.0 Disorientation, unspecified; Z86.711 Personal history of pulmonary embolism
CPT/HCPCS: 96365; 97116-GP; 97161-GP; J0690; Q9967

== ENCOUNTER 2018-08-08 22:04 | Emergency (ER) | payer OTHER, MEDICAID ==
--- NOTE | 2018-08-08 22:44 | EDPHY ---
H & P Stated Complaint: dizzy, confused, CA pt, possible infection? Time Seen by Provider: 08/08/18 22:15 HPI/ROS: Chief Complaint: Confusion, cough, dizzy HPI: 68-year-old woman presenting with 2 days of confusion, cough for the last week, lightheadedness. Patient reports a history of stage IV breast cancer and states she is currently on oral chemotherapy, verzenio (abemaciclib). She was admitted 2 months ago for sepsis secondary to a fungal skin infection. Had a single episode of abdominal pain a week ago which has since resolved. No diarrhea or constipation. Chronic urinary incontinence which is unchanged. No skin rash. No fevers or chills. No chest pain or shortness of breath. No fainting. ROS: 10 systems were reviewed and were negative except those elements noted in the HPI. PMH: Sepsis, stated for breast cancer, diabetes, PE on Xarelto, bipolar disorder, seizure disorder, fibromyalgia, hypertension Social History: No smoking, no alcohol, no recreational drug use Family History: non-contributory Physical Exam: Gen: Awake, Alert, No Distress HEENT: Nose: no rhinorrhea Eyes: PERRLA, EOMI Mouth: Moist mucosa Neck: Supple, no JVD Chest: nontender, lungs clear to auscultation Heart: S1, S2 normal, no murmur Abd: Soft, non-tender, no guarding Back: no CVA tenderness, no midline tenderness Ext: no edema, non-tender Skin: no rash Neuro: CN II-XII intact, Sensation grossly intact, Strength 5/5 in bilateral upper and lower extremities - Personal History Tetanus Vaccine Date: 2011 - Medical/Surgical History Hx Asthma: No Hx Chronic Respiratory Disease: No Hx Diabetes: Yes Hx Cardiac Disease: No Hx Renal Disease: No Hx Cirrhosis: No Hx Alcoholism: No Hx HIV/AIDS: No Hx Splenectomy or Spleen Trauma: No Other PMH: Bipolar, Diabetes, fibromyalgia, PE, neuropathy , necrotising faciaitis, bone and breast and lung cancer - Social History Smoking Status: Former smoker Constitutional: Initial Vital Signs Temperature (C) 37.1 C 08/08/18 22:10 Heart Rate 98 08/08/18 22:10 Respiratory Rate 20 08/08/18 22:10 Blood Pressure 117/68 08/08/18 22:10 O2 Sat (%) 87 L 08/08/18 22:10 O2 Delivery Mode Room Air Allergies/Adverse Reactions: Wheat Containing *RETIRED-02/15/12 [Wheat Containing Prod] Allergy ( Intermediate, Verified 08/08/18 22:09) Other-Enter Comments gluten Allergy (Verified 08/08/18 22:09) Home Medications: Medication Instructions Recorded ARIPiprazole [Abilify 10 mg (*)] 10 mg PO DAILY 06/15/14 SUMAtriptan [Imitrex 50 MG (*)] 100 mg PO Q2 PRN 06/15/14 Venlafaxine HCl [Venlafaxine HCl 450 mg PO DAILY 06/15/14 ER] Benztropine Mesylate [Cogentin] 1 - 2 mg PO HS 06/13/18 Gabapentin [Neurontin 300 MG (*)] 300 - 600 mg PO DAILY 06/13/18 Linagliptin [Tradjenta] 5 mg PO DAILY 06/13/18 Losartan Potassium [Cozaar 50 mg 50 mg PO DAILY 06/13/18 (*)] Methylphenidate HCl [Ritalin 20mg 40 mg PO BID 06/13/18 (*)] glipiZIDE [Glipizide] 10 mg PO DAILY 06/13/18 Acetaminophen [Tylenol 325mg (*)] 650 mg PO Q4HRS PRN tab 06/14/18 Doxycycline Hyclate [Vibramycin 100 mg PO BID #14 cap 06/14/18 100 MG (*)] Hydrocodone/APAP 5/325 [[place] 1 - 2 tab PO Q4HRS PRN #10 tab 06/14/18 5/325 (*)] Miconazole Nitrate 2% [Micatin 2% 1 subhash TP BID #1 tube 06/14/18 Cream (*)] Rivaroxaban [Xarelto] 20 mg PO DAILY #30 tab 06/14/18 Cephalexin [Keflex (*)] 500 mg PO Q6H #20 cap 08/09/18 Medical Decision Making ED Course/Re-evaluation: 68-year-old woman with urinary tract infection. She has not have leukocytosis. She is not tachycardic. She is not meet any SIRS criteria. She is awake alert and oriented appropriate. Urinalysis is consistent UT I pubic given a dose of Rocephin here. Some IV fluids. Plan will be to discharge with follow- up as an outpatient, return for any concerns. - Data Points Laboratory Results: Laboratory Results 08/08/18 22:35 08/08/18 22:35 08/08/18 08/08/18 08/08/18 23:35 22:35 22:35 WBC 4.08 10^3/uL 10^3/uL (3.80-9.50) RBC 4.22 10^6/uL 10^6/uL (4.18-5.33) Hgb 13.4 g/dL g/dL (12.6-16.3) Hct 40.1 % % (38.0-47.0) MCV 95.0 fL fL (81.5-99.8) MCH 31.8 pg pg (27.9-34.1) MCHC 33.4 g/dL g/dL (32.4-36.7) RDW 16.8 % H % (11.5-15.2) Plt Count 191 10^3/uL 10^3/uL (150-400) MPV 9.7 fL fL (8.7-11.7) Neut % (Auto) 51.2 % % (39.3-74.2) Lymph % (Auto) 38.5 % % (15.0-45.0) [place] % (Auto) 5.9 % % (4.5-13.0) Eos % (Auto) 2.2 % % (0.6-7.6) Baso % (Auto) 2.0 % H % (0.3-1.7) Nucleat RBC Rel Count 0.0 % % (0.0-0.2) Absolute Neuts (auto) 2.09 10^3/uL 10^3/uL (1.70-6.50) Absolute Lymphs (auto) 1.57 10^3/uL 10^3/uL (1.00-3.00) Absolute Monos (auto) 0.24 10^3/uL L 10^3/uL (0.30-0.80) Absolute Eos (auto) 0.09 10^3/uL 10^3/uL (0.03-0.40) Absolute Basos (auto) 0.08 10^3/uL 10^3/uL (0.02-0.10) Absolute Nucleated RBC 0.00 10^3/uL 10^3/uL (0-0.01) Immature Gran % 0.2 % % (0.0-1.1) Immature Gran # 0.01 10^3/uL 10^3/uL (0.00-0.10) Sodium 132 mEq/L L mEq/L (135-145) Potassium 4.5 mEq/L mEq/L (3.5-5.2) Chloride 95 mEq/L L mEq/L (97-110) Carbon Dioxide 28 mEq/l mEq/l (22-31) Anion Gap 9 mEq/L mEq/L (6-14) BUN 17 mg/dL mg/dL (7-23) Creatinine 1.0 mg/dL mg/dL (0.6-1.0) Estimated GFR 55 Glucose 155 mg/dL H mg/dL (70-100) Calcium 9.2 mg/dL mg/dL (8.5-10.4) Total Bilirubin 0.6 mg/dL mg/dL (0.1-1.4) AST 26 IU/L IU/L (14-46) ALT 15 IU/L IU/L (9-52) Alkaline Phosphatase 69 IU/L IU/L (38-126) Total Protein 7.1 g/dL g/dL (6.3-8.2) Albumin 3.8 g/dL g/dL (3.5-5.0) Urine Color YELLOW Urine Appearance HAZY Urine pH 5.0 (5.0-7.5) Ur Specific [place] 1.025 (1.002-1.030) Urine Protein 1+ H (NEGATIVE) Urine Ketones NEGATIVE (NEGATIVE) Urine Blood 3+ H (NEGATIVE) Urine Nitrate NEGATIVE (NEGATIVE) Urine Bilirubin NEGATIVE (NEGATIVE) Urine Urobilinogen 4.0 EU H EU (0.2-1.0) Ur Leukocyte Esterase 2+ H (NEGATIVE) Urine RBC 50-182 /hpf H /hpf (0-3) Urine WBC 50-182 /hpf H /hpf (0-3) Ur Epithelial Cells TRACE /lpf /lpf (NONE-1+) Urine Bacteria TRACE /hpf H /hpf (NONE SEEN) Hyaline Casts 1-5 /lpf /lpf (0-1) Urine Mucus 1+ /lpf /lpf (NONE-1+) Urine Glucose NEGATIVE (NEGATIVE) Medications Given: Ceftriaxone Sodium/Dextrose (Rocephin 1 Gm (Premix)) 50 mls @ 100 mls/hr IV EDNOW ONE PRN Reason: Protocol Stop: 08/09/18 01:10 Last Admin: 08/09/18 00:50 Dose: 50 mls Discontinued Medications Sodium Chloride (Ns) 1,000 mls @ 0 mls/hr IV ONCE ONE; Wide Open PRN Reason: Protocol Stop: 08/08/18 22:59 Last Admin: 08/08/18 23:30 Dose: 1,000 mls Sodium Chloride (Ns) 1,000 mls @ 0 mls/hr IV ONCE ONE; Wide Open PRN Reason: Protocol Stop: 08/09/18 00:42 Last Admin: 08/09/18 00:51 Dose: 1,000 mls Departure - Departure Disposition: Home, Routine, Self-Care Clinical Impression: Urinary tract infection Condition: Good Instructions: Urinary Tract Infection in Women (ED) Additional Instructions: Please take her full course of antibiotics. Follow up with primary care physician in 1-2 days for further evaluation. Return to the emergency department for increasing confusion, lightheadedness, fainting, chest pain, shortness of breath, falls, or any other concerns. Referrals: Adrian Grady MD [Primary Care Provider] - As per Instructions Prescriptions: Cephalexin [Keflex (*)] 500 mg PO Q6H #20 cap
[2018-08-08] MEDS ORDERED: NS 1,000 ML IV ONE (22:58)
[2018-08-08 23:22] LABS: PLATELET COUNT 191 10^3/uL (150-400)
[2018-08-09] MEDS ORDERED: NS 1,000 ML IV ONE (00:41)
[2018-08-09] MEDS ORDERED: ONDANSETRON DISINTEGRATING 4 MG TAB ONE (01:18)
[2018-08-09] MEDS ORDERED: MAG HYDROX/AL HYDROX/SIMETH 30 ML UDCUP ONE (01:19)
[2018-08-09 01:35] VITALS: BP 104/56
== END 2018-08-09 01:42 | disposition home or self-care (01) ==
DX: N39.0 Urinary tract infection, site not specified (principal); E11.9 Type 2 diabetes mellitus without complications; E86.9 Volume depletion, unspecified; Z86.711 Personal history of pulmonary embolism; Z79.01 Long term (current) use of anticoagulants; Z79.4 Long term (current) use of insulin
CPT/HCPCS: 71046; 96365; 99284; J0696

== ENCOUNTER 2018-09-25 15:46 | Emergency (ER) | payer OTHER, MEDICAID ==
--- NOTE | 2018-09-25 15:52 | EDPHY ---
H & P Time Seen by Provider: 09/25/18 15:52 - Personal History Tetanus Vaccine Date: 2011 - Medical/Surgical History Hx Asthma: No Hx Chronic Respiratory Disease: No Hx Diabetes: Yes Hx Cardiac Disease: No Hx Renal Disease: No Hx Cirrhosis: No Hx Alcoholism: No Hx HIV/AIDS: No Hx Splenectomy or Spleen Trauma: No Other PMH: Bipolar, Diabetes, fibromyalgia, PE, neuropathy , necrotising faciaitis, bone and breast and lung cancer - Social History Smoking Status: Former smoker Constitutional: Initial Vital Signs Temperature (C) 36.8 C 09/25/18 15:56 Heart Rate 121 H 09/25/18 15:56 Respiratory Rate 18 09/25/18 15:56 Blood Pressure 148/100 H 09/25/18 15:56 O2 Sat (%) 91 L 09/25/18 15:56 Allergies/Adverse Reactions: Wheat Containing *RETIRED-02/15/12 [Wheat Containing Prod] Allergy ( Intermediate, Verified 08/08/18 22:09) Other-Enter Comments gluten Allergy (Verified 08/08/18 22:09) Home Medications: Medication Instructions Recorded ARIPiprazole [Abilify 10 mg (*)] 10 mg PO DAILY 06/15/14 SUMAtriptan [Imitrex 50 MG (*)] 100 mg PO Q2 PRN 06/15/14 Venlafaxine HCl [Venlafaxine HCl 450 mg PO DAILY 06/15/14 ER] Benztropine Mesylate [Cogentin] 1 - 2 mg PO HS 06/13/18 Gabapentin [Neurontin 300 MG (*)] 300 - 600 mg PO DAILY 06/13/18 Linagliptin [Tradjenta] 5 mg PO DAILY 06/13/18 Losartan Potassium [Cozaar 50 mg 50 mg PO DAILY 06/13/18 (*)] Methylphenidate HCl [Ritalin 20mg 40 mg PO BID 06/13/18 (*)] glipiZIDE [Glipizide] 10 mg PO DAILY 06/13/18 Acetaminophen [Tylenol 325mg (*)] 650 mg PO Q4HRS PRN tab 06/14/18 Doxycycline Hyclate [Vibramycin 100 mg PO BID #14 cap 06/14/18 100 MG (*)] Hydrocodone/APAP 5/325 [Hardy 1 - 2 tab PO Q4HRS PRN #10 tab 06/14/18 5/325 (*)] Miconazole Nitrate 2% [Micatin 2% 1 subhash TP BID #1 tube 06/14/18 Cream (*)] Rivaroxaban [Xarelto] 20 mg PO DAILY #30 tab 06/14/18 Cephalexin [Keflex (*)] 500 mg PO Q6H #20 cap 08/09/18 Cephalexin [Keflex (RX)] 500 mg PO TID #30 cap 09/25/18 Medical Decision Making ED Course/Re-evaluation: CHIEF COMPLAINT: Confusion HISTORY OF PRESENT ILLNESS: The patient is a 68 y/o female with a history of metastatic breast cancer complaining of confusion and a fever today. The patient reports that she has been admitted to the hospital in the past for confusion associated with a fever and a UTI. She has taken Keflex in the past for a UTI. She is not currently taking chemo, but is on an estrogen paulo. No headache, body aches, lightheadedness, chest pain, heart palpitations, shortness of breath, cough, abdominal pain, urinary or bowel complaints, numbness, paresthesias. REVIEW OF SYSTEMS: A comprehensive 10 system review of systems is otherwise negative aside from elements mentioned in the history of present illness and medical decision making. PHYSICAL EXAM: HR, BP, O2 Sat, RR. Temp noted General Appearance: Able to speak in full sentences, alert, well hydrated, appropriate, and non-toxic appearing. Head: Atraumatic without scalp tenderness or obvious injury Eyes: Pupils equal, round, reactive to light and accommodation, EOMI, no trauma , no injection. Ears: Clear bilaterally, no perforation, normal landmarks Nose: Atraumatic, no rhinorrhea, clear. Throat: There is no erythema or exudates, no lesions, normal tonsils, mucus membranes moist. Neck: Supple, 2+ carotid upstroke, nontender, no lymphadenopathy. Respiratory: No retractions, no distress, no wheezes, and no accessory muscle use. Lungs are clear to auscultation bilaterally. Cardiovascular: Regular rate and rhythm, no murmurs, rubs, or gallops. Bilateral carotid, radial, dorsalis pedis, and posterior tibial pulses intact. Good capillary refill all extremities. Gastrointestinal: Abdomen is soft, nontender, non-distended, no masses, no rebound, no guarding, no peritoneal signs. Musculoskeletal: Normal active ROM of all extremities, atraumatic. Neurological: Alert, appropriate, and interactive. The patient has normal DTRs and non-focal cranial nerves, motor, sensory, and cerebellar exam. Skin: No rashes, good turgor, no nodules on palpation. Past medical history: Bipolar, Diabetes, fibromyalgia, PE, neuropathy , necrotizing fasciitis, metastasized breast cancer to bone and lung Past surgical history: Denies Family history: Denies Social history: Son at bedside, DIAGNOSTICS/PROCEDURES/CRITICAL CARE TIME: Not indicated DIFFERENTIAL DIAGNOSIS: The differential diagnosis for the patient's altered mental status included but was not limited to hypoglycemia, infectious process, electrolyte abnormality, head injury, neurologic process, anemia, cardiac process, and intoxicants. MEDICAL DECISION MAKING: The patient is a 68 y/o female with a history of metastatic breast cancer presenting with confusion and a fever today. The patient reports that she has been admitted to the hospital in the past for confusion associated with a fever and a UTI. I suspect she has a UTI again as she has an otherwise unremarkable exam. Patient is able to talk in full sentences and does not seem confused to me. Labs ordered. 1715: Patient's UA reveals a UTI. I will prescribe her Keflex and advise her to take her first dose prior to discharge. 1717: Reassessed patient and discussed laboratory findings. Patient is comfortable with taking Keflex. Return precautions provided; patient is comfortable with this plan. - Data Points Laboratory Results: 09/25/18 16:00 Urine Color YELLOW Urine Appearance CLEAR Urine pH 5.0 (5.0-7.5) Ur Specific [place] 1.016 (1.002-1.030) Urine Protein NEGATIVE (NEGATIVE) Urine Ketones NEGATIVE (NEGATIVE) Urine Blood NEGATIVE (NEGATIVE) Urine Nitrate NEGATIVE (NEGATIVE) Urine Bilirubin NEGATIVE (NEGATIVE) Urine Urobilinogen 2.0 EU H EU (0.2-1.0) Ur Leukocyte Esterase 2+ H (NEGATIVE) Urine RBC Pending Urine WBC Pending Ur Epithelial Cells Pending Urine Glucose 1+ H (NEGATIVE) Departure - Departure Disposition: Home, Routine, Self-Care Clinical Impression: UTI (urinary tract infection) Qualifiers: Urinary tract infection type: site unspecified Hematuria presence: without hematuria Qualified Code(s): N39.0 - Urinary tract infection, site not specified Condition: Good Instructions: Urinary Tract Infection in Women (ED) Additional Instructions: 1. Take Keflex as prescribed. 2. Follow-up with your primary doctor within 72 hours. 3. Return to the Emergency Department for fever, worsening pain, flank pain or failure to improve within 72 hours. Referrals: Adrian Grady MD [Primary Care Provider] - As per Instructions Prescriptions: Cephalexin [Keflex (RX)] 500 mg PO TID #30 cap Report Scribed for: Kehinde Hernandez Report Scribed by: Kelly Smallwood Date of Report: 09/25/18 Time of Report: 16:01
[2018-09-25] MEDS ORDERED: CEPHALEXIN 500 MG CAP PO ONE (17:14)
[2018-09-25 17:31] VITALS: BP 116/82
== END 2018-09-25 17:30 | disposition home or self-care (01) ==
DX: N39.0 Urinary tract infection, site not specified (principal)

== ENCOUNTER → 2018-10-14 | Outpatient (CLI) | payer OTHER, MEDICAID ==
[~2018-10-14] MED LIST: GADOBUTROL 10 ML VIAL IVP ONE
== END ==
LOC: FIMAGING 17:25
PROVIDERS: ATTEND Physician Assistant
DX: R41.0 Disorientation, unspecified (principal); C50.812 Malignant neoplasm of overlapping sites of left female breast; G31.9 Degenerative disease of nervous system, unspecified; R90.82 White matter disease, unspecified
CPT/HCPCS: 70553; A9585